=== PATIENT | male | born 1985 | race Hispanic/Latino ===

== ENCOUNTER → 2020-08-04 | Outpatient (CLI) | payer OTHER | END | disposition home or self-care (01) | LOC: OIH 15:33 | PROVIDERS: ATTEND Internal Medicine | DX: S40.019A Contusion of unspecified shoulder, initial encounter (principal); M25.519 Pain in unspecified shoulder; X58.XXXA Exposure to other specified factors, initial encounter; Y93.89 Activity, other specified; Y92.89 Other specified places as the place of occurrence of the external cause; Y99.8 Other external cause status | CPT/HCPCS: 73030 ==